=== PATIENT | female | born 1940 | race Caucasian/White ===

== ENCOUNTER → 2021-06-21 | Outpatient (CLI) | payer MEDICARE ==
[~2021-06-21] MED LIST: ADV250INH; CALCTAB68 PO; CELE1CAP4 PO; CLON-412; DILT1CAP5; DILT60TA2 PO; DOCU5LIQ PO; DONE5TAB82; DYAZCA PO; ELIQ5TAB; FURO40TA2; GLIP5TAB8 PO; GLYB5TAB5 PO; HYDR-3713 PO; JOINCAP2 PO; LISI20TA33; LOVA10TA; LOVA10TA PO; LYRI75CA PO; MACR100C43 PO; MECL-136; MECL-68 PO; MOM30SS PO; MULTCAP11 PO; MULTTAB61 PO; OMEP-173; OXYB5TAB10 PO; OXYC1TAB23 PO; SERT50TA29; TYLE325T5 PO; WARF2TAB44 PO; ZOCO20TA PO; [UNRECOGNIZED DRUG - CODE]; lisinopril PO
== END ==
LOC: M RAD 08:37
PROVIDERS: ATTEND Physician Assistant
DX: Z01.818 Encounter for other preprocedural examination (principal); N13.30 Unspecified hydronephrosis; J98.4 Other disorders of lung; M85.89 Other specified disorders of bone density and structure, multiple sites

== ENCOUNTER 2021-07-19 06:40 | Day surgery (SDC) | payer MEDICARE ==
[~2021-07-19] VITALS: Ht 167.6 cm; Wt 77.7 kg
[~2021-07-19 06:40] MED LIST changes: +ACET-897 PO; -ADV250INH; +ADV250INH INH; -CLON-412; +CLON-412 PO; -DONE5TAB82; +DONE5TAB82 PO; +ELIQ5TAB PO; +FLUTISP; -FURO40TA2; +FURO40TA2 PO; +LIDOCAINE 1% MDV 20ML VIAL SQ PRN; -LISI20TA33; +LISI20TA33 PO; -LOVA10TA; +MECL-136 PO; -OMEP-173; +OMEP-173 PO; -SERT50TA29; +SERT50TA29 PO; -[UNRECOGNIZED DRUG - CODE]; +[UNRECOGNIZED DRUG - CODE] PO
[2021-07-19] MEDS ORDERED: CIPROFLOXACIN 400 MG in IV 1 EA IV ONE (06:50)
[2021-07-19] MEDS ORDERED: LR 1,000 ML IV ONE (06:50)
[2021-07-19] MEDS ORDERED: LIDOCAINE 2% 100MG/5ML SDV (FOR ANES.) As Ordered ONE (07:22)
[2021-07-19] MEDS ORDERED: propofoL 200 MG/20 ML VIAL As Ordered ONE (07:22)
[2021-07-19] MEDS ORDERED: fentaNYL 100 MCG/2 ML INJECTION As Ordered ONE (07:22)
[2021-07-19] MEDS ORDERED: ISOVUE-300 61% 50ML VIAL As Ordered ONE (09:16)
[2021-07-19] MEDS ORDERED: ACETAMINOPHEN 1000MG 100ML IV BTL (OFIRMEV) (J0131 PER 10MG) As Ordered ONE (09:48)
[2021-07-19] MEDS ORDERED: dexameTHASONE 4 MG/ML 1ML VIAL (J1100 PER 1MG) As Ordered ONE (09:59)
[2021-07-19] MEDS ORDERED: ONDANSETRON 4MG/2ML VIAL As Ordered ONE (09:59)
[2021-07-19] MEDS ORDERED: HYDR-3713 PO (11:08)
[2021-07-19] MEDS ORDERED: BACT800T5 PO (11:08)
[2021-07-19] MEDS ORDERED: METOCLOPRAMIDE INJ 10MG/2ML VIAL (J2765 PER 1) IV PRN (11:45)
[2021-07-19] MEDS ORDERED: LR 1,000 ML IV SCH (11:45)
[2021-07-19] MEDS ORDERED: oxyCODONE 5MG TAB PO PRN (11:45)
[2021-07-19] MEDS ORDERED: fentaNYL 100 MCG/2 ML INJECTION IV PRN (11:45)
[2021-07-19] MEDS ORDERED: ONDANSETRON 4MG/2ML VIAL IV PRN (11:45)
[2021-07-19 12:41] VITALS: BP 177/79
[2021-07-23 20:08] LABS: CA Oxalate Dihy 90 % (.); Ca Ox Monohydrate 5 % (.); Size 4x3 mm (.)
== END 2021-07-19 12:41 | disposition home or self-care (01) ==
LOC: M SDC 06:40
PROVIDERS: ATTEND Urology
DX: N20.0 Calculus of kidney (principal); K21.9 Gastro-esophageal reflux disease without esophagitis; I48.91 Unspecified atrial fibrillation; I10 Essential (primary) hypertension; E11.9 Type 2 diabetes mellitus without complications; Z79.01 Long term (current) use of anticoagulants; Z79.84 Long term (current) use of oral hypoglycemic drugs; Z79.899 Other long term (current) drug therapy; K59.00 Constipation, unspecified
CPT/HCPCS: 52356; 76000; 82365; C1769; C2617; J0131; J1100; J2405; J3010; Q9967